=== PATIENT | female | born 1955 | race Caucasian/White ===

== ENCOUNTER 2022-05-07 17:33 | Emergency (ER) | payer BC, SELFPAY ==
[2022-05-07 17:39] VITALS: BP 138/74; PULSE 70; RESP 14; TEMP 36.8; O2SAT 98; BMI 26.5
--- NOTE | 2022-05-07 17:42 | RAD_ITS ---
STUDY: X-RAY - LEFT ELBOW REASON FOR EXAM: Female, 66 years old. DEFORMITY TECHNIQUE: 2 view(s) of the elbow. COMPARISON: None. FINDINGS: Cortical irregularity of the neck of the radius worrisome for nondisplaced fracture. Correlation with CT would be useful. Normal radiocapitellar and ulnotrochlear articulations. The soft tissue structures are unremarkable. RAD/Elbow 2 Views IMPRESSION: Suspect fracture the radial neck and correlation with CT would be useful. Electronically Signed: Olivier Elmore MD at 18:40 EST ,
--- NOTE | 2022-05-07 17:42 | RAD_ITS ---
STUDY: X-RAY - LEFT SHOULDER REASON FOR EXAM: Female, 66 years old. DEFORMITY TECHNIQUE: 2 view(s) of the shoulder. COMPARISON: None. FINDINGS: Normal glenohumeral articulation. Normal acromioclavicular joint. Normal acromion. Acute comminuted fracture the humeral neck and head with a fracture line extending through the greater tuberosity.. The soft tissue structures are unremarkable. Normal visualized pulmonary apex. RAD/Shoulder min 2 Views IMPRESSION: Acute comminuted humeral neck and head fracture. Electronically Signed: Olivier Elmore MD at 18:41 EST ,
[2022-05-07 19:23] VITALS: BP 136/72; PULSE 77; RESP 14; O2SAT 98
--- NOTE | 2022-05-07 19:40 | EX.ED.UPPERE ---
HPI History of Present Illness HPI Narrative: Slipped and fell on the ice ice-skating today injuring her left shoulder. Did not hit her head. No LOC. No other complaints. Denies any elbow pain. Chief Complaint: Upper Extremity Injury Informant: patient Occured/Mechanism Mechanism/Context: Yes injury and Yes blunt trauma Onset/Context/Timing Onset: Today Context: Sudden Onset Timing: Continuous Quality of Pain: Sharp Current Severity: Moderate Maximum Severity: Moderate Associated Symptoms Associated Symptoms: Negative for Parasthesia, Weakness or Loss of Funtion Narrative Narrative: 66-year-old female ice-skating today fell on the ice landed directly on her left shoulder complaining left shoulder pain. Denies hitting her head. No LOC. She is on no blood thinners. She denies other complaints. She is right-hand dominant. Prior similar symptoms: No Recent Illness/Hospitalization: No PFSH PFSH Medical History no medical history Home Medications hydrocodone-acetaminophen 5-325mg 5mg-325mg 1 tab PO Q4H PRN pain 4 days #14 tabs 05/07/22 [Rx Last Taken Unknown] hydrocodone-acetaminophen 5-325mg 5mg-325mg 1 tab PO Q4H PRN pain 5 days #14 tabs 05/07/22 [Rx Last Taken Unknown] Allergy/AdvReac Type Severity Reaction Status Date / Time No Known Allergies Allergy Verified 05/07/22 17:35 Social History Smoking Status: Unknown if ever smoked ROS ROS ED ROS Narrative Denies recent illness Review of Systems ROS Unobtainable: Denies due to encephalopathy Constitutional Constitutional ED: Denies chills or fever(s) Eyes Eyes: Denies blurry vision ENT ENT ED: Denies ear pain Cardiovascular Cardiovascular: Denies chest pain Respiratory/Chest Respiratory/Chest: Denies cough or dyspnea Gastrointestinal Gastrointestinal: Denies abdominal pain Genitourinary Genitourinary ED: Denies dysuria or hematuria Musculoskeletal Musculoskeletal: Denies back pain Integumentary Denies abscess Neurologic Neurologic: Denies headache(s) Psychiatric Psychiatric: Denies anxiety Endocrine Endocrinology: Denies cold intolerance Hematologic/Lymphatic Hematologic/Lymphatic: Denies easy bleeding Allergic/Immunologic Allergic/Immunologic ED: Denies mouth swelling or tongue swelling EXAM Physical Exam Narrative Exam Narrative: 8-year-old female no acute distress. Vital signs stable afebrile. H EENT exam unremarkable atraumatic. Pupils round reactive light. Face and scalp are nontender. C-spine nontender. Trachea midline. Back and spine nontender. Lungs clear equal symmetrical. Heart regular rhythm. Chest wall and rib cage nontender. Abdomen soft nontender. Pelvic girdle intact. Right upper and both lower extremities are nontender full range of motion. Neurovascular intact. Left shoulder tender to palpation. Limited range of motion of shoulder due to pain. Left elbow normal supination and pronation. She is in a sling. Left elbow left wrist and hand are nontender neurovascular intact. Normal log chipper operator strength. Normal radial pulse. Neurologic exam normal. GCS of 15. Const Vital Signs: 05/07/22 17:39 05/07/22 19:23 Temperature 98.2 F Temperature Source Temporal Pulse Rate 70 77 Respiratory Rate 14 14 Blood Pressure 138/74 H 136/72 H Blood Pressure Mean 95 93 Pulse Ox 98 98 Oxygen Delivery Method Room Air Room Air Positive well nourished and well developed; Negative for obese, cachectic, contractures or unkempt General Appearance ED: well developed and NAD; Negative for unkempt, cachectic, contractures, cyanotic or diaphoretic Nutritional Appearance: Negative for cachectic or obese HEENT Reports moist mucous membranes normocephalic and atraumatic; Negative for trauma or tenderness Eyes PERRL and EOMs intact bilaterally General Eye ED: Negative for other Neck full ROM and supple General: Negative for tenderness or other Lymph Lymphatic: Negative for other Chest Wall inspection of chest normal and palpation of chest normal Chest: Negative for other Resp normal respiratory effort and clear to auscultation bilaterally Effort and Inspection: Negative for pain with movement Auscultation: Negative for rales or rhonchi Cardio regular rate, regular rhythm, S1 normal heart sound, S2 normal heart sound and no murmurs Rate: Negative for bradycardia Rhythm: Negative for abnormal rhythm GI non-tender, non-distended and no masses Inspection: Negative for abdominal distention Auscultation: normoactive bowel sounds Palpation: soft; Negative for tender Back/Spine no CVA tenderness General Back: Negative for CVA tenderness Cervical Spine: Negative for cervical spine tenderness Thoracic Spine / Upper Back: Negative for thoracic spinal tenderness Lumbar Spine / Lower Back: Negative for lumbar spinal tenderness Extremity normal to inspection and full ROM Extremity Narrative: Except tenderness left shoulder. Decreased range of motion. Distal humerus, elbow, forearm, wrist, left hand are nontender neurovascular intact. No swelling. No deformity. Normal radial pulse. 5/5 log chipper operator strength. Normal sensation. Specifically the left elbow is nontender. General Extremety ED: Negative for edema General Extremity: Negative for edema Neuro oriented x3, CN's II-XII intact bilaterally, moves all extremities, no focal motor deficits and no sensory deficits noted Sensorium / Orientation: alert, oriented to person, oriented to place and oriented to time; Negative for orientation impaired, lethargic or stuporous Motor Exam: strength 5/5 throughout Psych mental status grossly normal Appearance: Negative for unkempt Attitude: No agitated Mood & Affect: Negative for depressed, anxious or tearful Skin General Skin Exam: Negative for petechiae Lesions: no lesions Rashes: no rashes Trauma: no lacerations or abrasions; Negative for abrasion, laceration or puncture MDM MDM MDM Narrative Medical decision making narrative: 66-year-old female fell in the ice has a comminuted left humerus fracture. Triage did the film and I agree with the humerus fracture of the humeral head and neck. They are questioning the left elbow she has no pain I do not think he needs a CAT scan. She will follow-up with [facility] orthopedics. She will be given [place] for pain. She is already in a sling. Radiography Diagnostic Testing: Clinical Impression(s) from Imaging Studies Elbow X-Ray 05/07/22 17:42 IMPRESSION: Suspect fracture the radial neck and correlation with CT would be useful. Electronically Signed: Olivier Elmore MD at 18:40 EST Reading Location ID and State: [id number] / [employer] , Service support , Shoulder X-Ray 05/07/22 17:42 IMPRESSION: Acute comminuted humeral neck and head fracture. Electronically Signed: Olivier Elmore MD at 18:41 EST Reading Location ID and State: [id number] / [employer] , Service support , Treatment and Re-Evaluation Narrative: X-ray of the left shoulder 2 view shows a comminuted left humeral head and neck fractures. Interpreted by the radiologist myself. Left elbow I personally do not see any fracture or dislocation. Radiologist does question a radial head fracture. She has no tenderness to the elbow and no pain with supination and pronation. Clinically I do not think she has a radial head fracture. Discussed with patient were deferring on a CT at this time. Discharge Plan Triage Chief Complaint: Upper Extremity Injury ED Provider: Rajendra Ballard Dx/Rx/DC Orders Clinical Impression: Fall, Fracture of left shoulder Instructions: ED Fracture, Shoulder Prescriptions: New hydrocodone-acetaminophen 5-325 mg tablet 1 tab PO Q4H PRN (Reason: pain) 4 Days Qty: 14 0RF hydrocodone-acetaminophen 5-325 mg tablet 1 tab PO Q4H PRN (Reason: pain) 5 Days Qty: 14 0RF Referrals: Viktor Solares MD [Non-Staff] - As soon as possible Activity Restrictions/Additional Instructions: Ice to shoulder. Motrin and Tylenol for pain. If you need stronger pain medication use the [place]. If you use the [place] it has Tylenol in it do not take any extra Tylenol but you may use it with Motrin. Sling on except while bathing. Call and follow-up with Dr. Rajendra Solares of [facility] orthopedics. You have a comminuted fracture of your left humeral head (your left shoulder). Take your x-ray copies with you. Disposition Disposition: Home, Self Care
== END 2022-05-07 20:03 | disposition home or self-care (01) ==
LOC: ED 19:56
PROVIDERS: Emergency Provider Emergency Medicine; Visit Provider Emergency Medicine
DX: S42.92XA Fracture of left shoulder girdle, part unspecified, initial encounter for closed fracture (principal); S42.292A Other displaced fracture of upper end of left humerus, initial encounter for closed fracture; W00.0XXA Fall on same level due to ice and snow, initial encounter; Y93.21 Activity, ice skating
CPT/HCPCS: 73030; 73070; 99282